=== PATIENT | male | born 1985 | race Caucasian/White ===

== ENCOUNTER 2017-08-25 13:50 | Emergency (ER) | payer SELFPAY ==
--- NOTE | 2017-08-25 15:47 | RAD REPORT ---
EXAM DESCRIPTION: RAD - Foot Right 3 View - 08/25/2017 2:36 pm CLINICAL HISTORY: Right foot pain FINDINGS: No fracture or dislocation is seen. No bone or joint abnormality seen
--- NOTE | 2017-08-25 15:51 | ER ---
Nurse's Notes [facility] Name: Abran Palacios Age: 32 yrs Sex: Male : 1985 Arrival Date: 08/25/2017 Time: 13:55 Bed Treatment Private MD: None, None Diagnosis: Pain in right foot Presentation: 08/25 14:03 Presenting complaint: Patient states: "my foot started hurting Thursday but I haven't aa5 done anything to it". pt c/o pain to bottom of right foot. Transition of care: patient was not received from another setting of care. Onset of symptoms was August 2017. Risk Assessment: Do you want to hurt yourself or someone else? Patient reports no desire to harm self or others. Initial Sepsis Screen: Does the patient meet any 2 criteria? No. Patient's initial sepsis screen is negative. Does the patient have a suspected source of infection? No. Patient's initial sepsis screen is negative. Care prior to arrival: None. 14:03 Method Of Arrival: Ambulatory aa5 14:03 Acuity: JOSE 4 aa5 Triage Assessment: 14:10 General: Appears in no apparent distress. comfortable, Behavior is calm, cooperative, kr2 appropriate for age. Historical: - Allergies: 14:05 No Known Allergies; aa5 - PMHx: 14:05 None; aa5 - PSHx: 14:05 left arm; aa5 - Immunization history:: Adult Immunizations up to date. - Social history:: Smoking status: Patient uses tobacco products, denies chronic smoking, but will smoke occasionally. - Ebola Screening: : No symptoms or risks identified at this time. - Family history:: not pertinent. - Hospitalizations: : No recent hospitalization is reported. Screenin:10 Abuse screen: Denies threats or abuse. Denies injuries from another. Nutritional kr2 screening: No deficits noted. Tuberculosis screening: No symptoms or risk factors identified. Fall Risk None identified. Assessment: 14:10 General: Appears in no apparent distress. comfortable, well groomed, well developed, kr2 well nourished, Behavior is calm, cooperative, appropriate for age. Pain: Complains of pain in right foot Pain currently is 0 out of 10 on a pain scale. at worst was 5 out of 10 on a pain scale. Quality of pain is described as sharp, tender, Pain began suddenly, Is intermittent, Alleviated by rest, Aggravated by weight bearing. Neuro: Level of Consciousness is awake, alert, obeys commands, Oriented to person, place, time, situation, Appropriate for age. Cardiovascular: Capillary refill < 3 seconds in bilateral fingers Patient's skin is warm and dry. Respiratory: Airway is patent Respiratory effort is even, unlabored, Respiratory pattern is regular, symmetrical. Derm: Skin is intact, is healthy with good turgor, Skin is pink, warm \\T\\ dry. Musculoskeletal: Circulation, motion, and sensation intact. Range of motion: intact in all extremities, Denies any injury. Vital Signs: 14:05 BP 138 / 86; Pulse 70; Resp 16 S; Temp 98.0(TE); Pulse Ox 97% on R/A; Weight 90.72 kg aa5 (R); Height 5 ft. 10 in. (177.80 cm) (R); Pain 0/10; 14:05 Body Mass Index 28.70 (90.72 kg, 177.80 cm) aa5 14:05 Pt reports pain only when walking aa5 ED Course: 13:55 Patient arrived in ED. sb2 13:55 None, None is Private Physician. sb2 14:04 Triage completed. aa5 14:04 Arm band placed on. aa5 14:07 Georgie Chauhan, RIO is Primary Nurse. kr2 14:10 Ousmane Skelton MD is Attending Physician. rn 14:10 Patient has correct armband on for positive identification. Call light in reach. kr2 14:33 X-ray completed. Portable x-ray completed in exam room. Patient tolerated procedure kp1 well. 14:35 XRAY Foot RIGHT 3 View In Process Unspecified. EDMS 16:15 No provider procedures requiring assistance completed. Patient did not have IV access kr2 during this emergency room visit. Administered Medications: No medications were administered Outcome: 15:50 Discharge ordered by . rn 16:15 Discharged to home ambulatory, with family. kr2 16:15 Condition: good 16:15 Discharge instructions given to patient, Instructed on discharge instructions, follow up and referral plans. Demonstrated understanding of instructions, follow-up care. 16:19 Patient left the ED. kr2 Signatures: Dispatcher [employer] EDMS Ousmane Skelton MD MD rn Calderon, Audri, RN RN aa5 Nayely Augustine kp1 Georgie Chauhan, RN RN kr2 Kelly Mar sb2
--- NOTE | 2017-08-25 15:51 | EDPHYS ---
Physician Documentation [facility] Name: Abran Palacios Age: 32 yrs Sex: Male : 1985 Arrival Date: 08/25/2017 Time: 13:55 Bed Treatment Private MD: None, None ED Physician Ousmane Skelton HPI: 08/25 14:41 This 32 yrs old Male presents to ER via Ambulatory with complaints of Foot rn Pain. 14:41 The patient presents with pain, that is acute. The complaints affect the right foot. rn Onset: The symptoms/episode began/occurred 3 day(s) ago. Severity of symptoms: At their worst the symptoms were moderate, in the emergency department the symptoms have improved. The patient has not experienced similar symptoms in the past. Reports right lateral foot pain, no known injury, + aching, worse when walks, no trauma, no hx of gout. . Historical: - Allergies: 14:05 No Known Allergies; aa5 - PMHx: 14:05 None; aa5 - PSHx: 14:05 left arm; aa5 - Immunization history:: Adult Immunizations up to date. - Social history:: Smoking status: Patient uses tobacco products, denies chronic smoking, but will smoke occasionally. - Ebola Screening: : No symptoms or risks identified at this time. - Family history:: not pertinent. - Hospitalizations: : No recent hospitalization is reported. ROS: 14:41 Constitutional: Negative for fever, chills, and weight loss, MS/Extremity: Negative for rn injury and deformity. Exam: 14:41 Constitutional: This is a well developed, well nourished patient who is awake, alert, rn and in no acute distress. MS/ Extremity: Pulses equal, no cyanosis. Neurovascular intact. Full, normal range of motion. Equal circumference. no focal tenderness or deformity Vital Signs: 14:05 BP 138 / 86; Pulse 70; Resp 16 S; Temp 98.0(TE); Pulse Ox 97% on R/A; Weight 90.72 kg aa5 (R); Height 5 ft. 10 in. (177.80 cm) (R); Pain 0/10; 14:05 Body Mass Index 28.70 (90.72 kg, 177.80 cm) aa5 14:05 Pt reports pain only when walking aa5 MDM: 14:10 Patient medically screened. rn 15:49 Differential diagnosis: fracture, sprain, arthritis. Data reviewed: vital signs, nurses rn notes, radiologic studies, plain films, and as a result, I will discharge patient. Counseling: I had a detailed discussion with the patient and/or guardian regarding: the historical points, exam findings, and any diagnostic results supporting the discharge/admit diagnosis, radiology results, the need for outpatient follow up, to return to the emergency department if symptoms worsen or persist or if there are any questions or concerns that arise at home. Special discussion: I discussed with the patient/guardian in detail that at this point there is no indication for admission to the hospital. It is understood, however, that if the symptoms persist or worsen the patient needs to return immediately for re-evaluation. 08/25 14:20 Order name: XRAY Foot RIGHT 3 View; Complete Time: 15:49 rn Administered Medications: No medications were administered Disposition: 08/25/17 15:50 Discharged to Home. Impression: Pain in right foot. - Condition is Stable. - Discharge Instructions: Musculoskeletal Pain, Pain Without a Known Cause. - Medication Reconciliation Form, Thank You Letter, Antibiotic Education, Prescription Opioid Use, Work release form form. - Follow up: Private Physician; When: As needed; Reason: Recheck today's complaints, Re-evaluation by your physician. - Problem is new. - Symptoms have improved. Signatures: Dispatcher [employer] EDMS Ousmane Skelton MD MD rn Calderon, Audri RN RN aa5 Georgie Chauhan RN RN kr2 Corrections: (The following items were deleted from the chart) 16:19 15:50 08/25/2017 15:50 Discharged to Home. Impression: Pain in right foot. Condition is kr2 Stable. Forms are Medication Reconciliation Form, Thank You Letter, Antibiotic Education, Prescription Opioid Use. Follow up: Private Physician; When: As needed; Reason: Recheck today's complaints, Re-evaluation by your physician. Problem is new. Symptoms have improved. rn
== END 2017-08-25 16:19 | disposition home or self-care (01) ==
LOC: ER 13:50
DX: M79.671 Pain in right foot (principal); F17.200 Nicotine dependence, unspecified, uncomplicated
CPT/HCPCS: 99283